=== PATIENT | male | born 1975 | race Caucasian/White ===

== ENCOUNTER 2019-12-16 07:06 | Outpatient (REF) | payer SELFPAY | END 2019-12-16 07:07 | disposition home or self-care (01) | LOC: HO.LAB 07:06 | PROVIDERS: Visit Provider Internal Medicine | DX: Z20.828 Contact with and (suspected) exposure to other viral communicable diseases (principal) | CPT/HCPCS: C9803; U0003 ==

== ENCOUNTER 2020-03-25 13:53 | Outpatient (REF) | payer OTHER, SELFPAY | END 2020-03-25 13:54 | disposition home or self-care (01) | LOC: HO.LAB 13:53 | PROVIDERS: Visit Provider Internal Medicine | DX: Z20.822 Contact with and (suspected) exposure to COVID-19 (principal) | CPT/HCPCS: 36415; C9803; U0003; U0005 ==

== ENCOUNTER 2020-04-14 13:44 | Outpatient (REF) | payer OTHER, SELFPAY | END 2020-04-14 13:45 | disposition home or self-care (01) | LOC: HO.LAB 13:44 | PROVIDERS: Visit Provider Internal Medicine | DX: Z20.822 Contact with and (suspected) exposure to COVID-19 (principal) | CPT/HCPCS: 36415; C9803; U0003; U0005 ==

== ENCOUNTER 2024-10-24 12:35 | Inpatient (IN) | payer OTHER, SELFPAY ==
[2024-10-24] VITALS (7 sets, daily range): BP systolic 153–194; BP diastolic 90–123; PULSE 59–84; RESP 16–20; TEMP 36.4–36.7; O2SAT 94–98; BMI 30.8; BMI 31.0
--- NOTE | ~2024-10-24 | US_ITS ---
CLINICAL HISTORY: ? gallstone pancreatitis Limited ultrasound of the abdomen Comparison: CR/SR - XR ABDOMEN 1 VIEW (KUB) - 10/25/24 09:[address]/NC/SR - CT ABDOMEN PELVIS WITH IV CONTRAST - 10/24/24 15:[address] - CT ABDOMEN PELVIS WITH IV CONTRAST - 10/24/24 15:05 EDT Findings: The liver is enlarged, measuring 18.5cm. Increased echogenicity without focal lesions. Normal flow is visualized within the portal vein. No intrahepatic biliary ductal dilatation. No cholelithiasis. No gallbladder wall thickening or pericholecystic fluid. Sonographic Woody's sign not reported. The common bile duct is normal, measuring 0.4cm. The pancreas is not well seen. The right kidney is normal in echogenicity and size, measuring 12.4cm. No nephrolithiasis or hydronephrosis. Small ascites. Impression: Small ascites. No cholelithiasis or evidence of acute cholecystitis. Hepatomegaly with hepatic steatosis. This document has been electronically signed by: Gertrudis Christie MD on 10/26/2024 15:20:45
--- NOTE | ~2024-10-24 | CT_ITS ---
EXAMINATION: CT ABDOMEN AND PELVIS WITH CONTRAST CLINICAL INFORMATION: Epigastric pain. EtOH. History of pancreatitis. COMPARISON: None available. TECHNIQUE: Multidetector volumetric images were obtained from the superior aspect of the liver through the pubic symphysis following administration 85 mL of Omnipaque 350 intravenous contrast. Sagittal and coronal reformatted images were obtained on the technologist's workstation. Oral contrast: No This CT examination was performed using dose optimization techniques as appropriate, variously including the following: *Automated exposure control *Adjustment of mA and/or kV according to patient size (this includes techniques or standardized protocols for targeted exams where dose is matched to indication/reason for exam; i.e. extremities or head) *Use of iterative reconstruction technique. DLP: 521 mGy centimeter. FINDINGS: LUNG BASES: Patchy groundglass, lung bases. LIVER, GALLBLADDER, AND BILIARY TREE: Liver measures 20 cm. Decreased attenuation. No focal mass. Main portal veins, hepatic veins and intrahepatic portion of the IVC are patent. Gallbladder is contracted. No pericholecystic fluid collection or gallbladder wall thickening. No intrahepatic or extrahepatic biliary ductal dilatation. PANCREAS: Engorged parenchyma with a subcentimeter hypodensity in the uncinate process and body of the pancreas. There is peripancreatic edema pattern extending into the lesser sac without fluid collection. No main pancreatic ductal dilatation.. SPLEEN: 11 cm. No focal mass. ADRENAL GLANDS: No nodular lesions. KIDNEYS AND URETERS: No renal mass. No hydronephrosis. No gross nephrolithiasis. Normal enhancement pattern of the renal parenchyma. No dilatation of the ureters. BLADDER: Fluid-filled nearly collapsed with wall thickening. GASTROINTESTINAL TRACT: Abundant stool. Collapsed appearance of the left hemicolon. Questionable concentric wall edema extending from the splenic colonic flexure to the descending colon. No intestinal obstruction pattern. No pneumatosis intestinalis. Terminal ileum is normal. Appendix is not identified. No pericecal edema pattern. No fluid collections in the peritoneal cavity. No pneumoperitoneum. No ascites. ABDOMINAL WALL: Small fat-containing umbilical hernia. LYMPH NODES: No specific prominent mesenteric and retroperitoneum likely reactive. VASCULAR: The main splenic vein is patent without gross intraluminal filling defect. The main splenic artery is patent without vascular irregularity. No aneurysm or dissection, abdominal aorta. Mixed plaques in the abdominal aorta wall and iliac arteries PELVIC VISCERA: Not enlarged prostate gland. OSSEOUS STRUCTURES: Multilevel thoracolumbar spondylosis. No acute fracture or gross listhesis. Sclerosis and the sacroiliac joints. Probable bony island lesions in the posterior right iliac bone. S-shaped curvature of the thoracolumbar spine which could be positional. CT/CT abdomen pelvis w IV con IMPRESSION: Acute interstitial pancreatitis without splenic vein thrombosis or pseudoaneurysm, splenic artery. Hepatomegaly and steatosis. Likely reactive inflammatory processes in the left hemicolon. Fleischner guidelines were followed. Electronically signed by: Aldair Martinez MD 10/24/2024 04:02 PM EDT
--- NOTE | ~2024-10-24 | XR_ITS ---
EXAMINATION: XR ABDOMEN KUB CLINICAL INDICATION: Constipation COMPARISON: CT abdomen and pelvis dated prior day. TECHNIQUE: AP view of the abdomen. FINDINGS: Bowel gas pattern is normal/nonspecific. There is no focally dilated loop. There is mild gaseous distention of the colon with moderate fecal residue seen in the right hemicolon. Redundant gas-filled sigmoid. Residual contrast noted within the gallbladder and within the urinary bladder. No organomegaly. No large abdominal mass. No abnormal soft tissue calcifications. No focal bony abnormality detected. Imaged lung bases appear clear. XR/XR KUB IMPRESSION: 1. Mild constipation. No evidence of bowel obstruction. Mild gaseous distention of the sigmoid colon which is mildly redundant. Electronically signed by: Ramón Morrison MD 10/25/2024 09:33 AM EDT
--- NOTE | 2024-10-24 12:56 | ECG_ITS ---
Test Reason : CP Blood Pressure : */* mmHG Vent. Rate : 72 BPM Atrial Rate : 72 BPM P-R Int : 150 ms QRS Dur : 94 ms QT Int : 408 ms P-R-T Axes : 51 -7 31 degrees QTcB Int : 446 ms Normal sinus rhythm with sinus arrhythmia Minimal voltage criteria for LVH, may be normal variant ( R in aVL ) Borderline ECG No previous ECGs available Referred By: Dianna Brown Electronically Signed By: SU HERNANDEZ
--- NOTE | 2024-10-24 13:41 | ED.ABDPAIN ---
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 No prior withdrawal seizures. He started with abdominal pain this AM n/v and feels just like prior pancreatitis. He denies bloody stools. He notes the pain moves up his chest. MD elicited complaint: abdominal pain Pertinent past history: other (pancreatitis) Onset (ago): day(s) (today) Pain Consistency: constant Location: epigastric Severity: similar to previous episodes Quality: stabbing Radiation: back Migration to: no migration Exacerbating factors: eating and movement Relieving factors: nothing Context: history of similar episodes Associated symptoms: nausea and vomiting Related Data Allergies Allergy/AdvReac Type Severity Reaction Status Date / Time No Known Allergies Allergy Verified 10/24/24 12:55 Review of Systems Review of Systems Constitutional : No Weight loss, No Fever, No Chills ENT/Mouth : No sore throat, No Rhinorrhea Eyes: No Swelling, No Redness Cardiovascular : No Chest Pain, No SOB, No Edema Respiratory : No Cough, No Sputum, No Wheezing Gastrointestinal : Positive Nausea, Positive Vomiting, no Diarrhea, positive abdominal Pain, No Hematochezia, No Melena Genitourinary : No Dysuria, No Urinary Frequency, No Hematuria, No Urgency Musculoskeletal : No joint pain, No Myalgias, No Joint Swelling Skin : No Skin Lesions, No rash Neuro : No Weakness, No Numbness, No Dizziness, No Headache All other systems reviewed and are negative. [facility] Past Medical History Attestation statement: The following information was validated with the patient. Source: old records reviewed Medical History Hypertension Surgical History Hx of appendectomy Social History Social History Smoked in Last 30 Days: Yes Use of substances other than those prescribed or required for medical reasons: Yes Substance Use Frequency Other:: suboxone bought off street Last Used Substance: Hours (ago) Advance Directives: No Advance Directives Information Provided: Yes Do you have a plan to hurt others: No Plan Physical Exam ED Vital Signs: Vital Signs - 24 hr 10/24/24 12:51 10/24/24 14:59 Temperature 97.5 F 97.9 F Pulse Rate 59 63 Respiratory Rate 18 16 Blood Pressure 153/100 H 172/110 H Pulse Oximetry 97 98 Oxygen Delivery Method Room Air Room Air BMI result Body Mass Index 30.8 Appearance: Alert. Oriented X3. in pain mild acute distress. anxious Eyes: Pupils equal, round and reactive to light. ENT: Pharynx dry MM, tongue fasciculations Neck: Normal inspection. Neck supple. CVS: Normal heart rate and rhythm. Pulses normal. Respiratory: No respiratory distress. Breath sounds normal. Abdomen: Soft and with moderate ttp no rebound Skin: Skin warm and dry. Normal skin color. Extremities: No lower extremity edema. Neuro: Oriented X 3. No motor deficit. No sensory deficit. CN2-12 intact slight tremors of both UE Medical Decision Making Medical Decision Making [facility] Narrative: 49 yo male with PMH of ETOH abuse, prior pancreatitis remotely now here with tremors, n/v, abdominal pain will obtain labs, CT scan of abdomen start on thiamine, phenobarb protocol for withdrawal, IV dilaudid for pain. Suspect gastritis, biliary colic, ETOH abuse, pancreatitis Differential Diagnosis Differential Diagnoses: The differential diagnosis associated with the presentation includes pancreatitis, ETOH use disorder, ETOh gastritis Admission/Observation Consideration of admission/observation: Escalation of care including admission/observation considered admit for IV pain control Consult Healthcare Provider Management of the patient was discussed with: Hospitalist (will admit) Lab Data [facility] Lab Attestation statement: I reviewed the patient's lab results. 10/24/24 13:44 10/24/24 13:44 Labs: Lab Results 10/24/24 10/24/24 Range/Units 13:44 15:12 WBC 12.5 H (4.8-10.8) X10*3/uL RBC 4.99 (4.60-5.80) X10*6/uL Hgb 15.1 (14.0-18.0) g/dl Hct 42.6 (42.0-52.0) % MCV 85.4 (80.0-98.0) fL MCH 30.3 (27.0-33.0) pg MCHC 35.4 (31.0-36.0) g/dl RDW 12.8 (11.0-16.0) % Plt Count 251 (160-400) X10*3/uL MPV 9.4 (9.4-12.4) fL Immature Gran % (Auto) 0.6 H (0.0-0.4) % Neut % (Auto) 82.7 H (45-73) % Lymph % (Auto) 6.3 L (20-40) % [place] % (Auto) 10.2 (2-11) % Eos % (Auto) 0.0 (0-4) % Baso % (Auto) 0.2 (0-2) % Lymph # (Auto) 0.8 L (1.2-4.9) X10*3/uL [place] # (Auto) 1.3 H (0.1-1.2) X10*3/uL Eos # (Auto) 0.0 (0.0-0.4) X10*3/uL Baso # (Auto) 0.0 (0.0-0.2) X10*3/uL Abs Immat Gran (auto) 0.08 H (0.00-0.03) X10*3/uL Absolute Neuts (auto) 10.3 H (2.0-8.3) x10*3/uL Absolute Nucleated RBC 0.000 (0.0-0.012) X10*3/uL Nucleated RBC % (auto) 0.0 (0.0-0.2) /100WBC Sodium 141 (135-145) mmol/L Potassium 4.0 (3.3-5.1) mmol/L Chloride 107 (96-108) mmol/L Carbon Dioxide 27 (22-29) mmol/L Anion Gap 11 L (12-20) BUN 11 (9-16) mg/dL Creatinine 0.76 (0.5-1.4) mg/dL Estim Creat Clear Calc 123.9 Estimated GFR > 60 Random Glucose 143 H (60-115) mg/dL Calcium 9.5 (8.4-10.2) mg/dL Magnesium 2.1 (1.6-2.6) mg/dL Total Bilirubin 0.5 (0.0-1.0) mg/dL Direct Bilirubin 0.2 (0.0-0.5) mg/dL AST 79 H (5-37) U/L ALT 115 H (0-40) U/L Alkaline Phosphatase 65 (39-117) U/L Lactate Dehydrogenase 221 (118-273) U/L Troponin I High Sens < 2.7 (<3.5-35.0) ng/L Total Protein 7.8 (6.5-8.0) g/dL Albumin 4.9 (3.5-5.0) g/dL Lipase 923 H (8-78) U/L Urine Opiates Screen Not Detected (Not Detect) Ur Buprenorphine Scrn Positive H (Not Detect) ng/mL Ur Oxycodone Screen Not Detected (Not Detect) ng/mL Urine Methadone Screen Not Detected (Not Detect) ng/mL Urine Fentanyl Screen Not Detected (Not Detect) Ur Barbiturates Screen Not Detected (Not Detect) Ur Phencyclidine Scrn Not Detected (Not Detect) Ur Amphetamines Screen Not Detected (Not Detect) U Benzodiazepines Scrn Not Detected (Not Detect) Urine Cocaine Screen Not Detected (Not Detect) U Marijuana (THC) Screen Not Detected (Not Detect) Ethyl Alcohol < 10 mg/dL Independent Interpretation I performed an independent interpretation of an: EKG and CT Scan (pancreatitis) Interpretation: Rate: 72 Rhythm: NSR [place]: left Normal P waves. Normal ELEAZAR. Normal QRS complex. ST T wave : normal no GUNJAN qTC: 446 prior studies: no acute ischemia The study has been interpreted contemporaneously by me. . Radiology Impression Discussion of test interpretation with radiology: I have reviewed the radiologist's reading. External Record Review External record reviewed: Outpatient record Medications Administered Discontinued Medications Generic Name Dose Route Start Last Admin Trade Name Freq PRN Reason Stop Dose Admin Hydromorphone HCl 1 mg 10/24/24 13:05 10/24/24 13:49 Hydromorphone Hcl 1 Mg/Ml Syringe IVPUSH 10/24/24 13:06 1 mg ONCE ONE Administration Protocol Lactated Ringer's 1,000 mls @ 999 mls/hr 10/24/24 13:05 10/24/24 14:50 Lr IV 10/24/24 14:05 Infused .Q1H1M ONE Infusion Thiamine HCl 200 mg/ Sodium 102 mls @ 204 mls/hr 10/24/24 13:05 10/24/24 14:22 Chloride IV 10/24/24 13:34 Infused ONCE ONE Infusion Iohexol 100 ml 10/24/24 15:39 10/24/24 15:39 Iohexol 350 Mg/Ml 100 Ml Infus..Btl IV 10/24/24 15:40 85 ml ONCE ONE Administration Ondansetron HCl 4 mg 10/24/24 13:05 10/24/24 13:49 Ondansetron Hcl 4 Mg/2 Ml Vial IVPUSH 10/24/24 13:06 4 mg ONCE ONE Administration Phenobarbital Sodium 264 mg 10/24/24 14:00 10/24/24 14:15 Phenobarbital Sodium 130 Mg/Ml Im Once IM 10/24/24 14:01 264 mg ONCE ONE Administration Critical Care Time Critical Care Time Critical Care Time: Yes Total Critical Care Time: 45 Attestation: Time is exclusive of separately billable procedures. Time includes: direct patient care, patient reassessment, coordination of patient care, interpretation of data (laboratory data, pulse oximetry, CT scans), review of patient's medical records, medical consultation and documentation of patient care. Repeat IV pain control with IV dilaudid, phenobarb protocol for withdrawal Procedures excluded from critical care time: electrocardiography. I attest to this time spent taking care of the patient Discharge Plan Discharge Clinical Impression: Abdominal pain Qualifiers: Abdominal location: epigastric Qualified Code(s): R10.13 - Epigastric pain Pancreatitis Qualifiers: Chronicity: acute Pancreatitis type: alcohol induced Acute pancreatitis complication: no infection or necrosis Qualified Code(s): K85.20 - Alcohol induced acute pancreatitis without necrosis or infection Patient Disposition: Admitted As Inpatient Print Language: Serbian
[2024-10-24 13:47] LABS: MANUAL DIFF FLAG NO
[2024-10-24] MEDS: Lactated Ringers 1,000 ML 999 ML IV (13:49)
[2024-10-24 13:52] LABS: Hematocrit 42.6 % (42.0-52.0); Hemoglobin 15.1 g/dl (14.0-18.0); Imm Gran Abs Auto 0.08 X10*3/uL (0.00-0.03); Imm Gran Pct Auto 0.6 % (0.0-0.4); Lymphocytes Absolute Auto 0.8 X10*3/uL (1.2-4.9); Mean Corpuscular HGB Conc 35.4 g/dl (31.0-36.0); Mean Corpuscular Hemoglobin 30.3 pg (27.0-33.0); Mean Corpuscular Volume 85.4 fL (80.0-98.0); NRBC Abs Auto 0.000 X10*3/uL (0.0-0.012); NRBC Pct Auto 0.0 /100WBC (0.0-0.2); Platelet Count 251 X10*3/uL (160-400); Red Blood Count 4.99 X10*6/uL (4.60-5.80); White Blood Count 12.5 X10*3/uL (4.8-10.8)
[2024-10-24] MEDS: Thiamine HCL 200 MG in 0.9 % Sodium Chloride 100 ML 204 MG IV (13:52)
--- NOTE | 2024-10-24 14:00 | PC.NURSE ---
patient a&ox3, iv inserted, labs drawn, ekg performed, monitoring coordinator applied- nsr, ivf started per order, pt medicated for 10/10 abd pain, awaiting radiology, call hagan within reach, plan of care ongoing
[2024-10-24] MEDS: PHENobarbitaL sodium 130 MG/ML IM ONCE 264 MG IM (14:15)
--- NOTE | 2024-10-24 14:18 | PC.NURSE ---
pt medicated with phenobarb per order
[2024-10-24 14:21] LABS: Troponin-I High Sensitivity < 2.7 ng/L (<3.5-35.0)
[2024-10-24 14:29] LABS: Alanine Aminotransferase 115 U/L (0-40); Albumin Level 4.9 g/dL (3.5-5.0); Alkaline Phosphatase 65 U/L (39-117); Anion Gap 11 (12-20); Aspartate Amino Transferase 79 U/L (5-37); Blood Urea Nitrogen 11 mg/dL (9-16); Calcium 9.5 mg/dL (8.4-10.2); Carbon Dioxide 27 mmol/L (22-29); Chloride 107 mmol/L (96-108); Creatinine Clr Calc Pharmacy 123.9; Estimated Glomerular Filt Rate > 60; Magnesium 2.1 mg/dL (1.6-2.6); Potassium 4.0 mmol/L (3.3-5.1); Sodium 141 mmol/L (135-145); Total Protein 7.8 g/dL (6.5-8.0)
[2024-10-24 14:33] LABS: Lipase 923 U/L (8-78)
[2024-10-24] MEDS: iohexoL 350 MG/ML 100 ML INFUS..BTL IV (15:39)
[2024-10-24 15:56] LABS: Cannabinoid Screen Urine Not Detected (Not Detect)
[2024-10-24] MEDS: Lactated Ringers 1,000 ML 100 ML IVCONT (16:33)
--- NOTE | 2024-10-24 16:42 | PC.NURSE ---
ivf hung per order, pt medicated for 10/10 abd pain- provider wanted 1st dose of dilaudid given and will reassess and speak with provider about the second dose.
--- NOTE | 2024-10-24 17:03 | PM.IMHP ---
History of Present Illness Date of Service: 10/24/24 Attending physician on admission: Maribell Garcia Chief Complaint: alcohol withdrawals HPI: 58 y/o M with pmhx etoh use -patient has prior history of pancreatitis also due to alcohol use-he drinks about 4 tall beers a day and feels shaky if he doesn't. No prior withdrawal seizures. He started with abdominal pain this AM n/v and feels just like prior pancreatitis. abd pain: Left flank side, radiating to back, unable to eat or drink due to pain. Feel nauseated. Denies any fever or chills. In addition patient is tremulous, anxious Lab imaging reviewed: WBC: 12.5 BMP: Seems fine except has mild elevated LFTs. ct abd: Acute interstitial pancreatitis without splenic vein thrombosis or pseudoaneurysm, splenic artery. Hepatomegaly and steatosis.Likely reactive inflammatory processes in the left hemicolon. Fleischner guidelines were followed. Review of Systems Review of Systems: As above. Yes all other systems are reviewed and are negative [facility] Medical History Hypertension Surgical History Hx of appendectomy Social History Smoked in Last 30 Days: Yes Use of substances other than those prescribed or required for medical reasons: Yes Substance Use Frequency Other:: suboxone bought off street Last Used Substance: Hours (ago) Advance Directives: No Advance Directives Information Provided: Yes Do you have a plan to hurt others: No Plan Meds Allergies Allergy/AdvReac Type Severity Reaction Status Date / Time No Known Allergies Allergy Verified 10/24/24 12:55 Active Medications: Current Medications Acetaminophen (Acetaminophen 325 Mg Tablet) 650 mg PO Q6H PRN PRN Reason: Pain, Mild 1-3,fever,headache Calcium Carbonate (Calcium Carbonate 750 Mg Tab.Chew) 750 mg PO Q4H PRN PRN Reason: Heartburn Clonidine HCl (Clonidine Hcl 0.1 Mg Tablet) 0.1 mg PO Q8H GREG; Protocol Enoxaparin Sodium (Enoxaparin Sodium 40 Mg/0.4 Ml Syringe) 40 mg SUBCUT Q24H GREG Hydromorphone HCl (Hydromorphone Hcl 0.5 Mg/0.5 Ml Syringe) 0.1 mg IVPUSH Q4H [facility]; Protocol Lactated Ringer's (Lr) 1,000 mls @ 100 mls/hr IVCONT .Q10H [facility] Last Admin: 10/24/24 16:33 Dose: 100 mls/hr Lactated Ringer's (Lr) 1,000 mls @ 100 mls/hr IVCONT .Q10H [facility] Magnesium Hydroxide (Milk Of Magnesia 30 Ml Oral.Susp) 30 ml PO DAILY PRN PRN Reason: Constipation Melatonin (Melatonin 3 Mg Tablet) 6 mg PO BEDTIME PRN PRN Reason: Insomnia Pantoprazole Sodium (Pantoprazole Sodium 40 Mg/10 Ml Vial) 40 mg IVPUSH BID [facility] Pharmacy Consult (Consult Rx Etoh Phenob Im/Po) 1 each MISCELLANE ONCE PRN; Protocol PRN Reason: Consult order Phenobarbital (Phenobarbital 15 Mg Tablet) 45 mg PO BID [facility] Stop: 10/26/24 21:01 Phenobarbital (Phenobarbital 15 Mg Tablet) 15 mg PO BID [facility] Stop: 10/28/24 21:01 Phenobarbital (Phenobarbital 15 Mg Tablet) 15 mg PO DAILY [facility] Stop: 10/30/24 09:01 Phenobarbital Sodium (Phenobarbital Sodium 130 Mg/Ml Vial Im Q3hx2) 198 mg IM Q3H [facility] Stop: 10/24/24 20:01 Sodium Chloride (0.9 % Sodium Chloride Flush 3 Ml Syringe) 3 ml IVFLUSH QSHIFT [facility] Physical Exam Vital Signs and Narrative: Vital Signs: Last Vital Signs Temp 98.0 F 10/24/24 16:38 Pulse 82 10/24/24 16:38 Resp 16 10/24/24 16:38 BP 188/123 H 10/24/24 16:38 Pulse Ox 94 10/24/24 16:38 O2 Del Method Room Air 10/24/24 16:38 BMI result Body Mass Index 30.8 Appearance: Alert.? Oriented X3.? cvs: rrr, [id number] , no murmur res: clear to auscultation ,no rhonchii or wheezing abd: no rebound or guarding ,left flank/epigastric pain , bs present. ext pulses present , no cyanosis . neuro: axo3 , nonfocal. Results Labs 10/24/24 13:44 10/24/24 13:44 Labs: Laboratory Results - last 24 hr 10/24/24 10/24/24 13:44 15:12 MCV 85.4 MCH 30.3 MCHC 35.4 RDW 12.8 Plt Count 251 MPV 9.4 Immature Gran % (Auto) 0.6 H Neut % (Auto) 82.7 H Lymph % (Auto) 6.3 L [place] % (Auto) 10.2 Eos % (Auto) 0.0 Baso % (Auto) 0.2 Lymph # (Auto) 0.8 L [place] # (Auto) 1.3 H Eos # (Auto) 0.0 Baso # (Auto) 0.0 Abs Immat Gran (auto) 0.08 H Absolute Neuts (auto) 10.3 H Absolute Nucleated RBC 0.000 Nucleated RBC % (auto) 0.0 Anion Gap 11 L Estim Creat Clear Calc 123.9 Estimated GFR > 60 Random Glucose 143 H Calcium 9.5 Magnesium 2.1 Total Bilirubin 0.5 Direct Bilirubin 0.2 AST 79 H ALT 115 H Alkaline Phosphatase 65 Lactate Dehydrogenase 221 Troponin I High Sens < 2.7 Total Protein 7.8 Albumin 4.9 Lipase 923 H Urine Opiates Screen Not Detected Ur Buprenorphine Scrn Positive H Ur Oxycodone Screen Not Detected Urine Methadone Screen Not Detected Urine Fentanyl Screen Not Detected Ur Barbiturates Screen Not Detected Ur Phencyclidine Scrn Not Detected Ur Amphetamines Screen Not Detected U Benzodiazepines Scrn Not Detected Urine Cocaine Screen Not Detected U Marijuana (THC) Screen Not Detected Ethyl Alcohol < 10 Imaging Radiologist's Impressions: Impressions Abdomen/Pelvis CT 10/24/24 15:18 IMPRESSION: Acute interstitial pancreatitis without splenic vein thrombosis or pseudoaneurysm, splenic artery. Hepatomegaly and steatosis. Likely reactive inflammatory processes in the left hemicolon. Fleischner guidelines were followed. Electronically signed by: Aldair Martinez MD 10/24/2024 04:02 PM EDT Assessment and Plan (1) Pancreatitis: Qualifiers: Acute pancreatitis complication: no infection or necrosis Chronicity: acute Pancreatitis type: alcohol induced Qualified Code(s): K85.20 - Alcohol induced acute pancreatitis without necrosis or infection Status: Acute Plan 58 y/o M with pmhx etoh use -patient has prior history of pancreatitis also due to alcohol use-he drinks about 4 tall beers a day and feels shaky if he doesn't. No prior withdrawal seizures. He started with abdominal pain this AM n/v and feels just like prior pancreatitis. abd pain: Left flank side, radiating to back, unable to eat or drink due to pain. Feel nauseated. 1. Acute pancreatitis-likely secondary to alcohol use. Elevated LFT, lipase, CT abdomen shows pancreatitis plan: Bowel rest, IV fluids, IV pain medication, IV antiemetics 2. Alcohol withdrawal: CIWA scale, thiamine, folic acid, phenobarb protocol. Addiction evaluation dvt prophylax: s/c lovenox Patient will benefit from 2 midnight stays considering alcohol withdrawals ,acute pancreatitis-need bowel rest,iv fluids ,pain meds and antiemetics, as well as closely monitor renal function electrolytes. Quality Stroke Does the patient have a stroke diagnosis?: No VTE Prior VTE?: No VTE Risk Level:: Medical - moderate - high VTE Device Contraindication: N/A - Device Ordered VTE Drug Contraindication: N/A - Med Ordered
[2024-10-24] MEDS: PHENobarbitaL sodium 130 MG/ML VIAL IM Q3Hx2 198 MG IM (18:00)
--- NOTE | 2024-10-24 18:02 | PC.NURSE ---
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
[2024-10-24] MEDS: 0.9 % Sodium Chloride Flush 3 ML SYRINGE IVFLUSH (21:28)
--- NOTE | 2024-10-24 21:56 | PC.NURSE ---
Patient admitted with Licensed Tax Consultant used at bedside by this charge entry. Patient hypertensive on admit as confirmed with manual by this life insurance underwriter. This pt denies s/s of HTN including h/a, dizziness, vision changes, n/v. Covering Dr. Leonard Sharma and the primary RN caring for this patient were notified. Pt denied any known medication allergies with asl interpreter. Please see provider notification and MAR for interventions. Bed alarm on and call hagan within reach and patient educated on use and fall measures.
--- NOTE | 2024-10-24 22:22 | HE.PHANOTE ---
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 Per family, patient doesn't take anything except for an old prescription of a blood pressure medication that he only takes as needed when blood pressure is high but either can recall the name of the medication. Patient doesn't see any doctor due to lack of insurance. Family will go home and take picture of the prescription vial and let us know.
[2024-10-25] VITALS (9 sets, daily range): BP systolic 124–190; BP diastolic 80–101; PULSE 66–86; RESP 16–18; TEMP 36.3–37.1; O2SAT 91–95
[2024-10-25] MEDS: Lactated Ringers 1,000 ML 100 ML IVCONT ×3 (02:40→22:12)
[2024-10-25 07:20] LABS: Hematocrit 47.3 % (42.0-52.0); Hemoglobin 16.0 g/dl (14.0-18.0); Mean Corpuscular HGB Conc 33.8 g/dl (31.0-36.0); Mean Corpuscular Hemoglobin 29.9 pg (27.0-33.0); Mean Corpuscular Volume 88.4 fL (80.0-98.0); NRBC Abs Auto 0.000 X10*3/uL (0.0-0.012); NRBC Pct Auto 0.0 /100WBC (0.0-0.2); Platelet Count 256 X10*3/uL (160-400); Red Blood Count 5.35 X10*6/uL (4.60-5.80); White Blood Count 13.8 X10*3/uL (4.8-10.8)
[2024-10-25 07:39] LABS: Alanine Aminotransferase 90 U/L (0-40); Albumin Level 4.5 g/dL (3.5-5.0); Alkaline Phosphatase 62 U/L (39-117); Anion Gap 12 (12-20); Aspartate Amino Transferase 60 U/L (5-37); Blood Urea Nitrogen 11 mg/dL (9-16); Calcium 9.2 mg/dL (8.4-10.2); Carbon Dioxide 30 mmol/L (22-29); Chloride 98 mmol/L (96-108); Creatinine Clr Calc Pharmacy 119.6; Estimated Glomerular Filt Rate > 60; Potassium 4.2 mmol/L (3.3-5.1); Sodium 136 mmol/L (135-145); Total Protein 7.4 g/dL (6.5-8.0)
[2024-10-25 07:51] LABS: Lipase 1398 U/L (8-78)
[2024-10-25] MEDS: 0.9 % Sodium Chloride Flush 3 ML SYRINGE IVFLUSH ×2 (08:10→14:42)
--- NOTE | 2024-10-25 08:25 | HO.PM.IMPN ---
Subjective Subjective Date of Service: 10/25/24 Interval History: alcohol withdrawals Review of Systems Abdominal pain similar, no improvement as per the patient Does not have nausea today Unable to tolerate diet Review of Systems: Yes all other systems are reviewed and are negative Physical Exam Exam: Exam: Appearance: Alert.? Oriented X3.? cvs: [id number], [id number] . res: clear to auscultation ,no rhonchii or wheezing abd: no rebound or guarding ,abd pain -similar , bs present. ext pulses present , no cyanosis . neuro: axo3 , nonfocal. Vital Signs: Vital Signs: Last Vital Signs Temp 97.4 F 10/25/24 08:00 Pulse 66 10/25/24 08:00 Resp 18 10/25/24 08:00 BP 155/101 H 10/25/24 08:00 Pulse Ox 95 10/25/24 08:00 O2 Del Method Room Air 10/25/24 08:00 BMI result Body Mass Index 31.0 Objective Data Active Medications Acetaminophen (Acetaminophen 325 Mg Tablet) 650 mg PO Q6H PRN PRN Reason: Pain, Mild 1-3,fever,headache Amlodipine Besylate (Amlodipine Besylate 2.5 Mg Tablet) 7.5 mg PO BEDTIME [facility]; Protocol Last Admin: 10/24/24 21:27 Dose: 7.5 mg Documented By: AYO Calcium Carbonate (Calcium Carbonate 750 Mg Tab.Chew) 750 mg PO Q4H PRN PRN Reason: Heartburn Clonidine HCl (Clonidine Hcl 0.2 Mg Tablet) 0.2 mg PO Q8H [facility]; Protocol Last Admin: 10/25/24 06:37 Dose: 0.2 mg Documented By: PA Enoxaparin Sodium (Enoxaparin Sodium 40 Mg/0.4 Ml Syringe) 40 mg SUBCUT Q24H [facility] Last Admin: 10/24/24 18:01 Dose: 40 mg Documented By: ROSA ISELA Hydromorphone HCl (Hydromorphone Hcl 1 Mg/Ml Syringe) 1 mg IVPUSH Q4H [facility]; Protocol Last Admin: 10/25/24 06:37 Dose: 1 mg Documented By: PA Lactated Ringer's (Lr) 1,000 mls @ 100 mls/hr IVCONT .Q10H [facility] Last Admin: 10/25/24 02:40 Dose: 100 mls/hr Documented By: PA Thiamine HCl 100 mg/ Sodium (Chloride) 101 mls @ 202 mls/hr IV DAILY [facility] Folic Acid 1 mg/ Sodium (Chloride) 50.2 mls @ 100.4 mls/hr IV DAILY [facility] Magnesium Hydroxide (Milk Of Magnesia 30 Ml Oral.Susp) 30 ml PO DAILY PRN PRN Reason: Constipation Melatonin (Melatonin 3 Mg Tablet) 6 mg PO BEDTIME PRN PRN Reason: Insomnia Ondansetron HCl (Ondansetron Hcl 4 Mg/2 Ml Vial) 4 mg IVPUSH Q4H PRN PRN Reason: Nausea and Vomiting Pantoprazole Sodium (Pantoprazole Sodium 40 Mg/10 Ml Vial) 40 mg IVPUSH BID [facility] Last Admin: 10/25/24 08:09 Dose: 40 mg Documented By: HILDA Pharmacy Consult (Consult Rx Etoh Phenob Im/Po) 1 each MISCELLANE ONCE PRN; Protocol PRN Reason: Consult order Phenobarbital (Phenobarbital 15 Mg Tablet) 45 mg PO BID [facility] Stop: 10/26/24 21:01 Phenobarbital (Phenobarbital 15 Mg Tablet) 15 mg PO BID [facility] Stop: 10/28/24 21:01 Phenobarbital (Phenobarbital 15 Mg Tablet) 15 mg PO DAILY [facility] Stop: 10/30/24 09:01 Sodium Chloride (0.9 % Sodium Chloride Flush 3 Ml Syringe) 3 ml IVFLUSH QSHIFT [facility] Last Admin: 10/25/24 08:10 Dose: 3 ml Documented By: HILDA Labs 10/25/24 06:45 10/25/24 06:45 Labs: Laboratory Results - last 24 hr 10/24/24 10/24/24 10/25/24 13:44 15:12 06:45 MCV 85.4 88.4 MCH 30.3 29.9 MCHC 35.4 33.8 RDW 12.8 13.0 Plt Count 251 256 MPV 9.4 9.9 Immature Gran % (Auto) 0.6 H Neut % (Auto) 82.7 H Lymph % (Auto) 6.3 L Cowley % (Auto) 10.2 Eos % (Auto) 0.0 Baso % (Auto) 0.2 Lymph # (Auto) 0.8 L Cowley # (Auto) 1.3 H Eos # (Auto) 0.0 Baso # (Auto) 0.0 Abs Immat Gran (auto) 0.08 H Absolute Neuts (auto) 10.3 H Absolute Nucleated RBC 0.000 0.000 Nucleated RBC % (auto) 0.0 0.0 Anion Gap 11 L 12 Estim Creat Clear Calc 123.9 119.6 Estimated GFR > 60 > 60 Random Glucose 143 H 137 H Calcium 9.5 9.2 Magnesium 2.1 Total Bilirubin 0.5 1.3 H Direct Bilirubin 0.2 AST 79 H 60 H ALT 115 H 90 H Alkaline Phosphatase 65 62 Lactate Dehydrogenase 221 Troponin I High Sens < 2.7 Total Protein 7.8 7.4 Albumin 4.9 4.5 Lipase 923 H 1398 H Urine Opiates Screen Not Detected Ur Buprenorphine Scrn Positive H Ur Oxycodone Screen Not Detected Urine Methadone Screen Not Detected Urine Fentanyl Screen Not Detected Ur Barbiturates Screen Not Detected Ur Phencyclidine Scrn Not Detected Ur Amphetamines Screen Not Detected U Benzodiazepines Scrn Not Detected Urine Cocaine Screen Not Detected U Marijuana (THC) Screen Not Detected Ethyl Alcohol < 10 Assessment and Plan (1) Pancreatitis: Status: Acute Plan 58 y/o M with pmhx etoh use -patient has prior history of pancreatitis also due to alcohol use-he drinks about 4 tall beers a day and feels shaky if he doesn't. No prior withdrawal seizures. He started with abdominal pain this AM n/v and feels just like prior pancreatitis. abd pain: Left flank side, radiating to back, unable to eat or drink due to pain. Feel nauseated. 1. Acute pancreatitis-likely secondary to alcohol use. Elevated LFT, lipase, CT abdomen shows pancreatitis plan: Abdominal pain similar, lipase trending up, KUB shows possible constipation. Bowel rest, IV fluids, IV pain medication, IV antiemetics, added bowel regimen. GI evaluation. 2. Alcohol withdrawal: CIWA scale, thiamine, folic acid, phenobarb protocol. Addiction evaluation 3. elevated bp:d/t alcohol withdrawals- on clonidine dvt prophylax: s/c lovenox Patient will benefit from 2 midnight stays considering alcohol withdrawals ,acute pancreatitis-need bowel rest,iv fluids ,pain meds and antiemetics, as well as closely monitor renal function electrolytes. Quality Stroke Does the patient have a stroke diagnosis?: No VTE Prior VTE?: No VTE Risk Level:: Medical - moderate - high VTE Device Contraindication: N/A - Device Ordered VTE Drug Contraindication: N/A - Med Ordered
[2024-10-25] MEDS: Thiamine HCL 100 MG in 0.9 % Sodium Chloride 100 ML 202 MG IV (08:30)
--- NOTE | 2024-10-25 09:23 | PM.GICN ---
History of Present Illness Data of Consult Service Date: 10/25/24 Requesting physician: Maribell Garcia Primary Care Provider: Unknown Physician HPI Reason for consult: acute pancreatitis 49 [place]ian-speaking male with etoh use, history of ETOH related pancreatitis seen at [facility] on 10/24/24 with abdominal pain, nausea and vomiting for 1 day (symptoms similar to past episode of pancreatitis). Patient admits to drinking 4 tall beers a day and feels shaky if he doesn't. No prior withdrawal seizures. Pt describes the abd pain as constant and stabbing located in the epigastrium/ left flank side, radiating to back, unable to eat or drink due to pain. Feel nauseated. Patient reports pain is worse with eating and movement. Denies any fever or chills. In addition patient is tremulous, anxious Labs showed WBC: 12.5 and lipase 923 and increased to 1398 today BMP: Elevated LFTs. 10/24/[address] SCAN SHOWED: Acute interstitial pancreatitis without splenic vein thrombosis or pseudoaneurysm, splenic artery. Hepatomegaly and steatosis. Likely reactive inflammatory processes in the left hemicolon Review of Systems Review of Systems: As above. Yes all other systems are reviewed and are negative [facility] Past Medical History Medical History Hypertension Surgical History Surgical History Hx of appendectomy Social History Social History Household Members: Other Household Members Other:: Friend Housing: Apartment Do you presently have visiting nurse or other home services: No Patient Tobacco Use Status: Current everyday Tobacco user Tobacco use type: Cigarette Cigarettes Per Day: 2 e-Cigarette/Vaping Use: Never Used Meds Allergies Allergy/AdvReac Type Severity Reaction Status Date / Time No Known Allergies Allergy Verified 10/24/24 12:55 Active Medications: Current Medications Acetaminophen (Acetaminophen 325 Mg Tablet) 650 mg PO Q6H PRN PRN Reason: Pain, Mild 1-3,fever,headache Amlodipine Besylate (Amlodipine Besylate 2.5 Mg Tablet) 7.5 mg PO BEDTIME [facility]; Protocol Last Admin: 10/24/24 21:27 Dose: 7.5 mg Calcium Carbonate (Calcium Carbonate 750 Mg Tab.Chew) 750 mg PO Q4H PRN PRN Reason: Heartburn Clonidine HCl (Clonidine Hcl 0.2 Mg Tablet) 0.2 mg PO Q8H [facility]; Protocol Last Admin: 10/25/24 06:37 Dose: 0.2 mg Enoxaparin Sodium (Enoxaparin Sodium 40 Mg/0.4 Ml Syringe) 40 mg SUBCUT Q24H [facility] Last Admin: 10/24/24 18:01 Dose: 40 mg Hydromorphone HCl (Hydromorphone Hcl 1 Mg/Ml Syringe) 1 mg IVPUSH Q4H [facility]; Protocol Last Admin: 10/25/24 06:37 Dose: 1 mg Lactated Ringer's (Lr) 1,000 mls @ 100 mls/hr IVCONT .Q10H [facility] Last Admin: 10/25/24 02:40 Dose: 100 mls/hr Thiamine HCl 100 mg/ Sodium (Chloride) 101 mls @ 202 mls/hr IV DAILY [facility] Last Admin: 10/25/24 08:30 Dose: 202 mls/hr Folic Acid 1 mg/ Sodium (Chloride) 50.2 mls @ 100.4 mls/hr IV DAILY [facility] Magnesium Hydroxide (Milk Of Magnesia 30 Ml Oral.Susp) 30 ml PO DAILY PRN PRN Reason: Constipation Melatonin (Melatonin 3 Mg Tablet) 6 mg PO BEDTIME PRN PRN Reason: Insomnia Ondansetron HCl (Ondansetron Hcl 4 Mg/2 Ml Vial) 4 mg IVPUSH Q4H PRN PRN Reason: Nausea and Vomiting Pantoprazole Sodium (Pantoprazole Sodium 40 Mg/10 Ml Vial) 40 mg IVPUSH BID [facility] Last Admin: 10/25/24 08:09 Dose: 40 mg Pharmacy Consult (Consult Rx Etoh Phenob Im/Po) 1 each MISCELLANE ONCE PRN; Protocol PRN Reason: Consult order Phenobarbital (Phenobarbital 15 Mg Tablet) 45 mg PO BID [facility] Stop: 10/26/24 21:01 Last Admin: 10/25/24 08:26 Dose: 45 mg Phenobarbital (Phenobarbital 15 Mg Tablet) 15 mg PO BID [facility] Stop: 10/28/24 21:01 Phenobarbital (Phenobarbital 15 Mg Tablet) 15 mg PO DAILY [facility] Stop: 10/30/24 09:01 Sodium Chloride (0.9 % Sodium Chloride Flush 3 Ml Syringe) 3 ml IVFLUSH QSHIFT [facility] Last Admin: 10/25/24 08:10 Dose: 3 ml Physical Exam Vital Signs: Vital Signs: Last Vital Signs Temp 97.4 F 10/25/24 08:00 Pulse 80 10/25/24 08:31 Resp 18 10/25/24 08:00 BP 132/80 10/25/24 08:31 Pulse Ox 94 10/25/24 08:31 O2 Del Method Room Air 10/25/24 08:00 BMI result Body Mass Index 31.0 Const: General: cooperative, in distress (due to pain) and anxious Nutritional Appearance: obese Orientation/consciousness: patient oriented x3 Limitations: language barrier HEENT: Head: Yes normal to inspection Ears: hearing grossly normal bilaterally Eyes: Sclerae: sclerae normal Pupils: Equal, round and reactive pupils present Neck: Neck: Yes normal visual inspection Chest: Chest palpation & inspection: normal inspection of the chest Resp: Effort & Inspection: normal respiratory effort Auscultation: clear to auscultation bilaterally Cardio: Palpation: normal PMI Rate: regular rate Rhythm: regular rhythm Heart sounds: S1 normal heart sound present, S2 normal heart sound present and no murmurs GI: Palpation (GI): Soft to palpation, Tenderness to palpation present (GI) (Moderate generalized abdominal tenderness without rebound) and No hepatosplenomegaly present Auscultation: normal bowel sounds Rectal Exam - Male: Yes deferred Skin: General skin exam: no rashes or lesions noted Neuro: General: patient oriented x3, gait normal and moves all extremities Cranial nerves: Yes Equal, round and reactive pupils present Psych: Appearance: grossly normal Mental Status: mental status grossly normal Results Labs 10/25/24 06:45 10/25/24 06:45 Labs: Short CBC 10/24/24 10/25/24 Range/Units 13:44 06:45 WBC 12.5 H 13.8 H (4.8-10.8) X10*3/uL Hgb 15.1 16.0 (14.0-18.0) g/dl Hct 42.6 47.3 (42.0-52.0) % Plt Count 251 256 (160-400) X10*3/uL BMP 10/24/24 10/25/24 13:44 06:45 Sodium 141 136 Potassium 4.0 4.2 Chloride 107 98 Carbon Dioxide 27 30 H BUN 11 11 Creatinine 0.76 0.79 Calcium 9.5 9.2 Liver Function 10/24/24 10/25/24 Range/Units 13:44 06:45 Total Bilirubin 0.5 1.3 H (0.0-1.0) mg/dL Direct Bilirubin 0.2 (0.0-0.5) mg/dL AST 79 H 60 H (5-37) U/L ALT 115 H 90 H (0-40) U/L Alkaline Phosphatase 65 62 (39-117) U/L Albumin 4.9 4.5 (3.5-5.0) g/dL Assessment and Plan (1) Abdominal pain: Qualifiers: Abdominal location: epigastric Qualified Code(s): R10.13 - Epigastric pain Status: Acute (2) Pancreatitis: Qualifiers: Acute pancreatitis complication: no infection or necrosis Chronicity: acute Pancreatitis type: alcohol induced Qualified Code(s): K85.20 - Alcohol induced acute pancreatitis without necrosis or infection Status: Acute Plan 49 [place]-speaking male with etoh use, history of ETOH related pancreatitis seen at [facility] on 10/24/24 with abdominal pain, nausea and vomiting for 1 day (symptoms similar to past episode of pancreatitis). Patient admits to drinking 4 tall beers a day and feels shaky if he doesn't. No prior withdrawal seizures. Patient is tremulous, anxious Labs showed WBC: 12.5 and lipase 923 and increased to 1398 today BMP: Elevated LFTs. Pancreatitis is likely related to ETOH abuse - need to rule out biliary pancreatitis and hypertriglyceridemia. 10/24/[address] SCAN SHOWED: Acute interstitial pancreatitis without splenic vein thrombosis or pseudoaneurysm, splenic artery. Hepatomegaly and steatosis. Likely reactive inflammatory processes in the left hemicolon RECOMMENDATIONS: 1. Agree with bowel rest with IV Fluids, IV antiemetics and pain medications. 2. Check triglycerides and repeat lipase and LFTs with a.m. labs 3. Abd US in the am to rule out non radiopaque gallstones (GB appeared to be contracted on CT scan) Procedures Date of Service Date of Service: 10/25/24
--- NOTE | 2024-10-25 12:05 | MHC.RECOVRN ---
TW met with the patient with interpretive services and visitor at bedside to discuss current alcohol use and concerns related to increased risk of alcohol related problems. Pt was agreeable to meeting with TW while the visitor was present.? On approach pt was sitting in bed, eyes closed, and mildly diaphoretic. Pt reports ?feeling like garbage? and reports abdominal pain and dry mouth. He denies symptoms of withdrawal.? Patient reports consuming 4 tall cans of beer daily and recently taking ?a small piece, like a tiny corner of Suboxone? he reports purchasing from the street in order to manage abdominal pain.? Pt reports he stopped being prescribed buprenorphine at his request? ?2-3? years ago and is able to manage opioid cravings with the use of alcohol. Review of [employer] confirms this statement. Pt denies desire to change his alcohol consumption but was agreeable to have information left at bedside. TW will obtain written education and resources in [place]ian to provide pt. Tw verbally educated on pancreatitis, its progression ith increased alcohol use, as well as the risk of precipitated withdrawal when utilizing opioid pain medication in addition to buprenorphine. Pt then shrugged his shoulders and closed his eyes.? Intention was to discuss how alcohol use has impacted health, including negative impact on mental health and overall physical well being as well as? risk and reduction strategies including drinking below the recommended limit however, due to patient request, information will be left at bedside. Pt declines intervention, DOM, or outpt appt related to AUD at this time.? Pt was provided with TW?s contact information if questions or concerns arise.? Pt denies further questions or concerns at this time.? TW to return with materials translated into Malian and is available for further questions or concerns
[2024-10-26] VITALS (8 sets, daily range): BP systolic 127–148; BP diastolic 60–89; PULSE 73–88; RESP 16–20; TEMP 36.2–37.1; O2SAT 91–95
[2024-10-26 06:34] LABS: Hematocrit 40.2 % (42.0-52.0); Hemoglobin 13.7 g/dl (14.0-18.0); Mean Corpuscular HGB Conc 34.1 g/dl (31.0-36.0); Mean Corpuscular Hemoglobin 30.2 pg (27.0-33.0); Mean Corpuscular Volume 88.7 fL (80.0-98.0); NRBC Abs Auto 0.000 X10*3/uL (0.0-0.012); NRBC Pct Auto 0.0 /100WBC (0.0-0.2); Platelet Count 195 X10*3/uL (160-400); Red Blood Count 4.53 X10*6/uL (4.60-5.80); White Blood Count 16.3 X10*3/uL (4.8-10.8)
[2024-10-26 07:19] LABS: Lipase 335 U/L (8-78); Triglycerides 47 mg/dL (<150)
--- NOTE | 2024-10-26 07:52 | HO.PM.IMPN ---
Subjective Subjective Date of Service: 10/26/24 Interval History: acute pancreatitis Review of Systems abd pain somewhat improving no nausea or vomiting or fever. Review of Systems: Yes all other systems are reviewed and are negative Physical Exam Exam: Exam: Appearance: Alert.? Oriented X3.? cvs: rrr, [id number] . res: clear to auscultation ,no rhonchii or wheezing abd: no rebound or guarding ,abd pain-left flank/rad to back , bs present. ext pulses present , no cyanosis . neuro: axo3 , nonfocal. Vital Signs: Vital Signs: Last Vital Signs Temp 98.0 F 10/26/24 03:43 Pulse 81 10/26/24 03:43 Resp 16 10/26/24 03:43 BP 134/81 10/26/24 06:23 Pulse Ox 91 L 10/26/24 03:43 O2 Del Method Room Air 10/26/24 03:43 BMI result Body Mass Index 31.0 Objective Data Active Medications Acetaminophen (Acetaminophen 325 Mg Tablet) 650 mg PO Q6H PRN PRN Reason: Pain, Mild 1-3,fever,headache Amlodipine Besylate (Amlodipine Besylate 2.5 Mg Tablet) 7.5 mg PO BEDTIME [facility]; Protocol Last Admin: 10/25/24 22:02 Dose: 7.5 mg Documented By: WALDEMAR Bisacodyl (Bisacodyl 10 Mg Supp.Rect) 10 mg [place] BEDTIME [facility] Last Admin: 10/25/24 22:14 Dose: Not Given Documented By: WALDEMAR Non-Admin Reason: Patient Refused Calcium Carbonate (Calcium Carbonate 750 Mg Tab.Chew) 750 mg PO Q4H PRN PRN Reason: Heartburn Clonidine HCl (Clonidine Hcl 0.2 Mg Tablet) 0.2 mg PO Q8H [facility]; Protocol Last Admin: 10/26/24 06:25 Dose: 0.2 mg Documented By: WALDEMAR Enoxaparin Sodium (Enoxaparin Sodium 40 Mg/0.4 Ml Syringe) 40 mg SUBCUT Q24H [facility] Last Admin: 10/25/24 17:29 Dose: 40 mg Documented By: IHLDA Hydromorphone HCl (Hydromorphone Hcl 1 Mg/Ml Syringe) 1 mg IVPUSH Q4H [facility]; Protocol Last Admin: 10/26/24 05:13 Dose: 1 mg Documented By: WALDEMAR Lactated Ringer's (Lr) 1,000 mls @ 100 mls/hr IVCONT .Q10H [facility] Last Admin: 10/25/24 22:12 Dose: 100 mls/hr Documented By: WALDEMAR Thiamine HCl 100 mg/ Sodium (Chloride) 101 mls @ 202 mls/hr IV DAILY [facility] Last Infusion: 10/25/24 09:25 Dose: Infused Documented By: HILDA Folic Acid 1 mg/ Sodium (Chloride) 50.2 mls @ 100.4 mls/hr IV DAILY [facility] Last Infusion: 10/25/24 11:11 Dose: Infused Documented By: HILDA Magnesium Hydroxide (Milk Of Magnesia 30 Ml Oral.Susp) 30 ml PO DAILY PRN PRN Reason: Constipation Melatonin (Melatonin 3 Mg Tablet) 6 mg PO BEDTIME PRN PRN Reason: Insomnia Ondansetron HCl (Ondansetron Hcl 4 Mg/2 Ml Vial) 4 mg IVPUSH Q4H PRN PRN Reason: Nausea and Vomiting Pantoprazole Sodium (Pantoprazole Sodium 40 Mg/10 Ml Vial) 40 mg IVPUSH BID [facility] Last Admin: 10/25/24 22:03 Dose: 40 mg Documented By: WALDEMAR Pharmacy Consult (Consult Rx Etoh Phenob Im/Po) 1 each MISCELLANE ONCE [facility]; Protocol PRN Reason: Consult order Phenobarbital (Phenobarbital 15 Mg Tablet) 45 mg PO BID [facility] Stop: 10/26/24 21:01 Last Admin: 10/25/24 22:02 Dose: 45 mg Documented By: WALDEMAR Phenobarbital (Phenobarbital 15 Mg Tablet) 15 mg PO BID [facility] Stop: 10/28/24 21:01 Phenobarbital (Phenobarbital 15 Mg Tablet) 15 mg PO DAILY [facility] Stop: 10/30/24 09:01 Sodium Chloride (0.9 % Sodium Chloride Flush 3 Ml Syringe) 3 ml IVFLUSH QSHIFT [facility] Last Admin: 10/26/24 01:18 Dose: Not Given Documented By: WALDEMAR Non-Admin Reason: IV Running Labs 10/26/24 06:00 10/25/24 06:45 Labs: Laboratory Results - last 24 hr 10/26/24 06:00 MCV 88.7 MCH 30.2 MCHC 34.1 RDW 12.5 Plt Count 195 MPV 10.1 Absolute Nucleated RBC 0.000 Nucleated RBC % (auto) 0.0 Triglycerides 47 Lipase 335 H Assessment and Plan (1) Pancreatitis: Status: Acute Plan 58 y/o M with pmhx etoh use -patient has prior history of pancreatitis also due to alcohol use-he drinks about 4 tall beers a day and feels shaky if he doesn't. No prior withdrawal seizures. He started with abdominal pain this AM n/v and feels just like prior pancreatitis. abd pain: Left flank side, radiating to back, unable to eat or drink due to pain. Feel nauseated. Acute pancreatitis-likely secondary to alcohol use. Elevated LFT, lipase, CT abdomen shows pancreatitis plan: Abdominal pain similar, lipase improving ,abd us Bowel rest, IV fluids, IV pain medication,ppi, IV antiemetics, added bowel regimen. GI evaluation noted. Constipation: luxatives prn Alcohol withdrawal: CIWA scale is 1, thiamine, folic acid, phenobarb protocol. Addiction evaluation elevated bp:d/t alcohol withdrawals- on clonidine dvt prophylax: s/c lovenox ongoing need to stays considering alcohol withdrawals ,acute pancreatitis-need bowel rest,iv fluids ,pain meds and antiemetics, as well as closely monitor renal function electrolytes. Quality Stroke Does the patient have a stroke diagnosis?: No VTE Prior VTE?: No VTE Risk Level:: Medical - moderate - high VTE Device Contraindication: N/A - Device Ordered VTE Drug Contraindication: N/A - Med Ordered
[2024-10-26] MEDS: 0.9 % Sodium Chloride Flush 3 ML SYRINGE IVFLUSH (07:59)
[2024-10-26] MEDS: Lactated Ringers 1,000 ML 100 ML IVCONT (08:13)
[2024-10-26] MEDS: Thiamine HCL 100 MG in 0.9 % Sodium Chloride 100 ML 202 MG IV (09:49)
--- NOTE | 2024-10-26 11:26 | PHA.MEDREC ---
Addendum entered by Jono Sauer, [facility] 10/27/24 15:55: Nurse Jacque Rivera said family sent in the pic of the med bottle at home and it's chlorthalidone 25 mg. Med rec updated and Dr. Garcia was notified. Original Note: Pharmacy Consult ? Medication Reconciliation Pharmacy has completed the medication reconciliation. Spoke to patient using an adaptive physical educator on 10/24/24 and he said he takes an old rx of blood pressure as needed for high blood pressure but doesn't know the name of medication. Friend said she will take a picture of the bottle and send it to him for us. Since then we still can't get a hold of the name of the med (left voicemail with friend twice on 10/25/24 with no call back). Dr. Garcia is aware of situation, ok with leaving med rec as no med and pharmacy will update when we can get the name of the med.
--- NOTE | 2024-10-26 11:37 | MHC.CM.PN ---
CM met with Patient at bedside and with the assist of a telephonic Valet Cashier (In-person Computer Methods Analyst delayed). Patient lives in an apartment with his , who will transport at the time of dc. Patient states that he is in pain so questions/answers are limited. Patient is unaware of who his PCP is. Patient may benefit from a Recovery Team Consult r/t ETOH.
[2024-10-27] VITALS (14 sets, daily range): BP systolic 135–175; BP diastolic 84–102; PULSE 71–84; RESP 12–20; TEMP 36.6–38.1; O2SAT 91–96
[2024-10-27] MEDS: 0.9 % Sodium Chloride Flush 3 ML SYRINGE IVFLUSH ×2 (08:37→20:59)
[2024-10-27 09:38] LABS: Alanine Aminotransferase 43 U/L (0-40); Albumin Level 3.6 g/dL (3.5-5.0); Alkaline Phosphatase 63 U/L (39-117); Anion Gap 11 (12-20); Aspartate Amino Transferase 44 U/L (5-37); Blood Urea Nitrogen 9 mg/dL (9-16); Calcium 8.8 mg/dL (8.4-10.2); Carbon Dioxide 23 mmol/L (22-29); Chloride 99 mmol/L (96-108); Creatinine Clr Calc Pharmacy 131.2; Estimated Glomerular Filt Rate > 60; Lipase 104 U/L (8-78); Potassium 3.5 mmol/L (3.3-5.1); Sodium 129 mmol/L (135-145); Total Protein 6.5 g/dL (6.5-8.0)
[2024-10-27] MEDS: Thiamine HCL 100 MG in 0.9 % Sodium Chloride 100 ML 202 MG IV (11:05)
[2024-10-27] MEDS: Lactated Ringers 1,000 ML 125 ML IVCONT ×2 (11:07→18:20)
--- NOTE | 2024-10-27 13:39 | HO.PM.IMPN ---
Subjective Subjective Date of Service: 10/27/24 Interval History: Acute pancreatitis Review of Systems Abdominal pain by very little improvement Feel nauseated Encouraged him to try liquid diet Review of Systems: Yes all other systems are reviewed and are negative Physical Exam Exam: Exam: Appearance: Alert.? Oriented X3.? cvs: rrr, [id number] . res: clear to auscultation ,no rhonchii or wheezing abd: no rebound or guarding ,abd pain-left flank/rad to back , bs present. ext pulses present , no cyanosis . neuro: axo3 , nonfocal. Vital Signs: Vital Signs: Last Vital Signs Temp 97.9 F 10/27/24 12:00 Pulse 77 10/27/24 12:00 Resp 12 10/27/24 12:00 BP 146/90 H 10/27/24 12:00 Pulse Ox 95 10/27/24 12:00 O2 Del Method Room Air 10/27/24 12:00 BMI result Body Mass Index 31.0 Objective Data Active Medications Acetaminophen (Acetaminophen 325 Mg Tablet) 650 mg PO Q6H PRN PRN Reason: Pain, Mild 1-3,fever,headache Amlodipine Besylate (Amlodipine Besylate 2.5 Mg Tablet) 7.5 mg PO BEDTIME GREG; Protocol Last Admin: 10/26/24 21:07 Dose: 7.5 mg Documented By: WALDEMAR Bisacodyl (Bisacodyl 10 Mg Supp.Rect) 10 mg SD BEDTIME GREG Last Admin: 10/26/24 21:08 Dose: Not Given Documented By: WALDEMAR Non-Admin Reason: Patient Refused Calcium Carbonate (Calcium Carbonate 750 Mg Tab.Chew) 750 mg PO Q4H PRN PRN Reason: Heartburn Clonidine HCl (Clonidine Hcl 0.2 Mg Tablet) 0.2 mg PO Q8H GREG; Protocol Last Admin: 10/27/24 06:33 Dose: 0.2 mg Documented By: WALDEMAR Enoxaparin Sodium (Enoxaparin Sodium 40 Mg/0.4 Ml Syringe) 40 mg SUBCUT Q24H GREG Last Admin: 10/26/24 17:17 Dose: Not Given Documented By: MICHEAL Non-Admin Reason: Patient Refused Hydromorphone HCl (Hydromorphone Hcl 1 Mg/Ml Syringe) 1 mg IVPUSH Q4H GREG; Protocol Last Admin: 10/27/24 11:04 Dose: 1 mg Documented By: MICHEAL Thiamine HCl 100 mg/ Sodium (Chloride) 101 mls @ 202 mls/hr IV DAILY GREG Last Infusion: 10/27/24 11:39 Dose: Infused Documented By: PANDADIAN Folic Acid 1 mg/ Sodium (Chloride) 50.2 mls @ 100.4 mls/hr IV DAILY [facility] Last Infusion: 10/27/24 09:18 Dose: Infused Documented By: MICHEAL Lactated Ringer's (Lr) 1,000 mls @ 125 mls/hr IVCONT .Q8H [facility] Last Admin: 10/27/24 11:07 Dose: 125 mls/hr Documented By: MICHEAL Magnesium Hydroxide (Milk Of Magnesia 30 Ml Oral.Susp) 30 ml PO DAILY PRN PRN Reason: Constipation Melatonin (Melatonin 3 Mg Tablet) 6 mg PO BEDTIME PRN PRN Reason: Insomnia Ondansetron HCl (Ondansetron Hcl 4 Mg/2 Ml Vial) 4 mg IVPUSH Q4H PRN PRN Reason: Nausea and Vomiting Pantoprazole Sodium (Pantoprazole Sodium 40 Mg/10 Ml Vial) 40 mg IVPUSH BID [facility] Last Admin: 10/27/24 08:46 Dose: 40 mg Documented By: MICHEAL Pharmacy Consult (Consult Rx Etoh Phenob Im/Po) 1 each MISCELLANE ONCE PRN; Protocol PRN Reason: Consult order Phenobarbital (Phenobarbital 15 Mg Tablet) 15 mg PO BID [facility] Stop: 10/28/24 21:01 Last Admin: 10/27/24 08:46 Dose: 15 mg Documented By: MICHEAL Phenobarbital (Phenobarbital 15 Mg Tablet) 15 mg PO DAILY [facility] Stop: 10/30/24 09:01 Sodium Chloride (0.9 % Sodium Chloride Flush 3 Ml Syringe) 3 ml IVFLUSH QSHIFT [facility] Last Admin: 10/27/24 08:37 Dose: 3 ml Documented By: MICHEAL Labs 10/26/24 06:00 10/27/24 08:53 Labs: Laboratory Results - last 24 hr 10/27/24 10/27/24 08:53 09:06 Hold Purple Top SEE NOTE Anion Gap 11 L Estim Creat Clear Calc 131.2 Estimated GFR > 60 Random Glucose 89 Calcium 8.8 Total Bilirubin 1.2 H AST 44 H ALT 43 H Alkaline Phosphatase 63 Total Protein 6.5 Albumin 3.6 Lipase 104 H Assessment and Plan (1) Pancreatitis: Status: Acute Plan 58 y/o M with pmhx etoh use -patient has prior history of pancreatitis also due to alcohol use-he drinks about 4 tall beers a day and feels shaky if he doesn't. No prior withdrawal seizures. He started with abdominal pain this AM n/v and feels just like prior pancreatitis. abd pain: Left flank side, radiating to back, unable to eat or drink due to pain. Feel nauseated. Acute pancreatitis-likely secondary to alcohol use. Elevated LFT, lipase, CT abdomen shows pancreatitis abd us:Small ascites. No cholelithiasis or evidence of acute cholecystitis.Hepatomegaly with hepatic steatosis. plan: Abdominal pain similar, lipase improving ,abd us Bowel rest, IV fluids, IV pain medication,ppi, IV antiemetics, added bowel regimen. GI evaluation noted. Constipation: luxatives prn hyponatremia : Likely due to decreased p.o. intake and IV fluids added serum, urine osmolality and lytes Encouraged for p.o. intake-at least clear liquid. We will repeat BMP in the evening. Alcohol withdrawal: CIWA scale 0, thiamine, folic acid, phenobarb protocol. Addiction evaluation-info given. elevated bp:d/t alcohol withdrawals- on clonidine dvt prophylax: s/c lovenox ongoing need to stays considering acute pancreatitis,hyponatremia -need bowel rest,iv fluids ,pain meds and antiemetics, as well as closely monitor renal function electrolytes. Quality Stroke Does the patient have a stroke diagnosis?: No VTE Prior VTE?: No VTE Risk Level:: Medical - moderate - high VTE Device Contraindication: N/A - Device Ordered VTE Drug Contraindication: N/A - Med Ordered
[2024-10-27 15:22] LABS: Osmolality, Serum 271 mosm/kg (281-305)
[2024-10-27 18:39] LABS: Anion Gap 10 (12-20); Blood Urea Nitrogen 9 mg/dL (9-16); Calcium 8.7 mg/dL (8.4-10.2); Carbon Dioxide 24 mmol/L (22-29); Chloride 99 mmol/L (96-108); Creatinine Clr Calc Pharmacy 136.9; Estimated Glomerular Filt Rate > 60; Potassium 3.4 mmol/L (3.3-5.1); Sodium 130 mmol/L (135-145)
[2024-10-28] VITALS: BP 151/94; PULSE 72; RESP 20; TEMP 37.3; O2SAT 96
[2024-10-28] MEDS: Lactated Ringers 1,000 ML 125 ML IVCONT ×2 (02:09→08:53)
[2024-10-28 04:00] VITALS: BP 168/99; PULSE 78; RESP 20; TEMP 37.6; O2SAT 96
[2024-10-28] MEDS: Thiamine HCL 100 MG in 0.9 % Sodium Chloride 100 ML 202 MG IV (07:39)
[2024-10-28 07:49] VITALS: BP 149/93; PULSE 76; RESP 20; TEMP 37.1; O2SAT 97
[2024-10-28] MEDS: Milk of Magnesia 30 ML ORAL.SUSP PO (07:53)
[2024-10-28] MEDS: 0.9 % Sodium Chloride Flush 3 ML SYRINGE IVFLUSH ×2 (07:59→17:19)
[2024-10-28 10:05] LABS: Hematocrit 40.1 % (42.0-52.0); Hemoglobin 14.2 g/dl (14.0-18.0); Mean Corpuscular HGB Conc 35.4 g/dl (31.0-36.0); Mean Corpuscular Hemoglobin 30.2 pg (27.0-33.0); Mean Corpuscular Volume 85.3 fL (80.0-98.0); NRBC Abs Auto 0.000 X10*3/uL (0.0-0.012); NRBC Pct Auto 0.0 /100WBC (0.0-0.2); Platelet Count 319 X10*3/uL (160-400); Red Blood Count 4.70 X10*6/uL (4.60-5.80); White Blood Count 13.9 X10*3/uL (4.8-10.8)
[2024-10-28 10:21] LABS: Anion Gap 12 (12-20); Blood Urea Nitrogen 8 mg/dL (9-16); Calcium 9.4 mg/dL (8.4-10.2); Carbon Dioxide 26 mmol/L (22-29); Chloride 97 mmol/L (96-108); Creatinine Clr Calc Pharmacy 126.0; Estimated Glomerular Filt Rate > 60; Lipase 105 U/L (8-78); Potassium 3.3 mmol/L (3.3-5.1); Sodium 132 mmol/L (135-145)
[2024-10-28 11:50] VITALS: BP 143/88; PULSE 67; RESP 18; TEMP 37.1; O2SAT 96
--- NOTE | 2024-10-28 14:37 | MHC.RECOVRN ---
Met with pt in f/u to provide and discuss resources r/t AUD. Discussed DOM and outpatient supports. Pt declined outpatient LONI appointment at the [facility] [place] for treatment of his AUD. Pt also declined DOM initiation at this time. No other questions or concerns offered. [facility] Mongolian speaking interpret utilized.
[2024-10-28 16:00] VITALS: BP 146/88; PULSE 80; RESP 18; TEMP 36.3; O2SAT 97
--- NOTE | 2024-10-28 16:25 | MHC.CM.PN ---
EMR reviewed and per MD rounds, pt is not medically cleared for discharge due to management of ETOH withdrawal.
--- NOTE | 2024-10-28 17:04 | PM.DS ---
DS: Providers Provider Date of Service: 10/28/24 Date of admission: 10/24/24 16:54 Date of discharge: 10/28/24 Primary care physician: Unknown Physician Consults: 10/24/24 17:29 Addiction Medicine Provider Routine Consulting Provider: Addiction Covering Reason for consultation: alcohol use 10/25/24 08:51 Consult to Gastroenterology Routine Consulting Provider: [facility] Gastro[facility]ology Services Reason for consultation: Acute pancreatitis Has provider been notified: No Attending physician on discharge: Maribell Garcia Discharging clinician: Maribell Garcia DS: Diagnosis Discharge Diagnosis (1) Pancreatitis: Status: Acute DS: Summary Hospital Course Hospital Course: hpi: 66-year-old female Barbadian-speaking only with past medical history hypertension, COPD/asthma, allergic rhinitis, knee replacement presents to the emergency department for noted low heart rate earlier today while checking her blood pressure via her electronic machine. Patient was also diagnosed with the flu this past Monday and was still symptomatic with a productive cough of yellow sputum and a scratchy throat. Patient has been started on Tamiflu and that is continued since Monday. Patient denies any fever, chills, nausea or vomiting. Patient is not having any chest pain or shortness of breath at rest. Workup in the ED included electrolytes and potassium noted to be 2.8. Patient's potassium has been repleted with 10 mEq KCL x4 and oral potassium. Patient's TSH was normal. EKG notes a rate of 46 with a normal SD and no evidence of heart block. QTC also normal. Magnesium 2.0. No murmur on exam. Cardiology was consulted by the ED provider and Cardiology felt it was appropriate to admit patient to this hospital. There was some concern for possible myocarditis secondary to influenza. Patient currently stable with ongoing normal hemodynamics other than heart rate. Patient has not required inotrope support in the ED. echo is pending. Patient did again test positive for influenza a today. Hospital course: Patient was admitted for alcohol withdrawal and pancreatitis: Started on IV fluid, pain medication and PPIs, CT abdomen done: Possible acute pancreatitis, hepatomegaly with steatosis. Leukocytosis reactive to pancreatitis improving. Patient is asymptomatic currently , no other symptoms. Patient lipase is and LFTs improving with hydration and supportive care. CT abdomen shows hepatic steatosis, also alcohol use might be contributing to elevated LFTs which is improving now, monitor LFT outpatient with PCP. Patient is tolerating diet. Abdominal pain improved significantly. Mild hyponatremia: Secondary to decreased p.o. intake, improving with p.o. intake and IV hydration. Monitor BMP outpatient. Patient was strongly advised to abstain from alcohol. Also added p.o. omeprazole for possible mild alcoholic gastritis. In addition added medications for constipation Limited supply of pain medication as above. Hypertension: Hold chlorthalidone since has pancreatitis, added amlodipine for blood pressure control. Monitor blood pressure out patiently with PCP and further management as per PCP. Patient was advised to follow up with PCP and consider outpatient GI outpatient plan: Amlodipine 10 mg q.day, chlorthalidone is on hold in the setting of pancreatitis. Also advised the patient to use low fat diet. Omeprazole, laxatives, thiamine as prescribed. Monitor BMP, LFTs outpatient, and further workup for hepatic steatosis outpatient Strongly advised to abstain from alcohol. Above management discussed with the patient and his in detail length he understand and in agreement with the above plan, time spent 50 minutes-they both understand and in agreement with the above plan. All questions answered. Information given to the patient with the help of driver service technician. Time Attestation Total time managing care of this patient today: 50 mintues. Discharge Coordination Time (in mins): 50 min Quality: Safe Use of Opioids Does Pt have an Active Cancer Diagnosis on the Problem List?: No Quality: Stroke Does the patient have a stroke diagnosis?: No Physical Exam Exam: Exam: Appearance: Alert.? Oriented X3.? cvs: rrr, [id number] . res: clear to auscultation ,no rhonchii or wheezing abd: no rebound or guarding ,abd pain-left flank/rad to back , bs present. ext pulses present , no cyanosis . neuro: axo3 , nonfocal. Vital Signs: Vital Signs: Last Vital Signs Temp 97.3 F 10/28/24 16:00 Pulse 80 10/28/24 16:00 Resp 18 10/28/24 16:00 BP 146/88 H 10/28/24 16:00 Pulse Ox 97 10/28/24 16:00 O2 Del Method Room Air 10/28/24 16:00 BMI result Body Mass Index 31.0 DS: Data Data Completed and Pending Labs on day of discharge: Laboratory Results - last 24 hr 09/21/25 09/22/25 18:18 09:25 WBC 13.9 H RBC 4.70 Hgb 14.2 Hct 40.1 L MCV 85.3 MCH 30.2 MCHC 35.4 RDW 11.9 Plt Count 319 D MPV 9.8 Absolute Nucleated RBC 0.000 Nucleated RBC % (auto) 0.0 Sodium 130 L 132 L Potassium 3.4 3.3 Chloride 99 97 Carbon Dioxide 24 26 Anion Gap 10 L 12 BUN 9 8 L Creatinine 0.69 0.75 Estim Creat Clear Calc 136.9 126.0 Estimated GFR > 60 > 60 Random Glucose 104 93 Calcium 8.7 9.4 D Lipase 105 H Imaging Chest x-ray: Radiologist's impression: ITS Impressions Abdomen/Pelvis CT 10/24/24 15:18 IMPRESSION: Acute interstitial pancreatitis without splenic vein thrombosis or pseudoaneurysm, splenic artery. Hepatomegaly and steatosis. Likely reactive inflammatory processes in the left hemicolon. Fleischner guidelines were followed. KUB X-Ray 10/25/24 09:00 IMPRESSION: 1. Mild constipation. No evidence of bowel obstruction. Mild gaseous distention of the sigmoid colon which is mildly redundant. Discharge Plan Discharge Anticipated Discharge Date/Time: 10/28/24 16:51 Patient Disposition: Home, Self-Care Discharge Diagnosis: abd pain /pencreatitis Referrals: Physician,Unknown J [Primary Care Provider, Medical] - 1 Week Discharge Medications: New bisacodyl [Gentle Laxative (bisacodyl)] 10 mg Suppository 10 mg SD BEDTIME PRN (Reason: constipation) Qty: 30 0RF amlodipine [Norvasc] 10 mg tablet 10 mg PO DAILY Qty: 90 0RF thiamine HCl (vitamin B1) 100 mg capsule 100 mg PO DAILY Qty: 90 0RF docusate sodium [Colace] 100 mg capsule 100 mg PO DAILY PRN (Reason: constipation) Qty: 30 0RF polyethylene glycol 3350 [Miralax] 17 gram/dose powder 17 g PO DAILY PRN (Reason: constipation) Qty: 119 0RF omeprazole 20 mg capsule,delayed release(DR/EC) 20 mg PO DAILY Qty: 90 0RF tramadol 25 mg tablet 25 mg PO Q6H PRN (Reason: pain) Qty: 10 0RF Discontinued chlorthalidone 25 mg Tablet 25 mg PO DAILY PRN (Reason: Blood Pressure) Discharge Orders: Discharge Order (Routine); Ordered 10/28/24 Ordered By: Maribell Garcia Diet: Advance to usual diet Activity on Discharge: As tolerated Stand Alone Forms: Patient Portal Discharge page Print Language: Barbadian Care Plan Goals: Patient was admitted for alcohol withdrawal and pancreatitis: Started on IV fluid, pain medication and PPIs, CT abdomen done: Possible acute pancreatitis, hepatomegaly with steatosis. Leukocytosis reactive to pancreatitis improving. Patient is asymptomatic currently , no other symptoms. Patient lipase is and LFTs improving with hydration and supportive care. CT abdomen shows hepatic steatosis, also alcohol use might be contributing to elevated LFTs which is improving now, monitor LFT outpatient with PCP. Patient is tolerating diet. Abdominal pain improved significantly. Patient was strongly advised to abstain from alcohol. Also added p.o. omeprazole for possible mild alcoholic gastritis. In addition added medications for constipation Limited supply of pain medication as above. Hypotension: Hold chlorthalidone since has pancreatitis, added amlodipine for blood pressure control. Monitor blood pressure out patiently with PCP and further management as per PCP. Patient was advised to follow up with PCP and consider outpatient GI outpatient Health Concerns: as Above. Plan of Treatment: As above. Assessment: As above. Discharge Date/Time: 10/28/24 18:18
== END 2024-10-28 18:18 | disposition home or self-care (01) | DRG 282 ==
LOC: HO.ED 15:59 → HO.EDOVER 17:05 → HO.IMC 19:18
PROVIDERS: Internal Medicine Cardiovascular Disease; Internal Medicine Gastroenterology; Admitting Provider Internal Medicine; Emergency Provider Emergency Medicine; Visit Provider Internal Medicine
DX: K85.20 Alcohol induced acute pancreatitis without necrosis or infection (principal); E87.1 Hypo-osmolality and hyponatremia; F10.139 Alcohol abuse with withdrawal, unspecified; F17.210 Nicotine dependence, cigarettes, uncomplicated; K59.00 Constipation, unspecified; Z71.41 Alcohol abuse counseling and surveillance of alcoholic; Z71.6 Tobacco abuse counseling; Z79.899 Other long term (current) drug therapy
CPT/HCPCS: 36415; 74018; 74177; 76705; 80048; 80053; 80076; 80307; 82436; 83615; 83690; 83735; 83930; 83935; 84133; 84300; 84478; 84484; 85025; 85027; 93005; 99285; J1171; J1650; J1808; J2405; J2470; J2560; J3411; J7120; Q9967; S9485

== ENCOUNTER → 2024-10-24 12:56 | Outpatient (BNV) | payer OTHER, SELFPAY | PROVIDERS: Admitting Provider Internal Medicine; Emergency Provider Emergency Medicine; Visit Provider Internal Medicine | DX: R07.9 Chest pain, unspecified (principal) | CPT/HCPCS: 93010 ==

== ENCOUNTER → 2024-10-24 13:06 | Outpatient (BNV) | payer OTHER, SELFPAY | PROVIDERS: Emergency Provider Emergency Medicine; Visit Provider Radiology Diagnostic Radiology | DX: K85.90 Acute pancreatitis without necrosis or infection, unspecified (principal) | CPT/HCPCS: 74177 ==

== ENCOUNTER 2024-10-24 16:54 | Outpatient (BNV) | payer OTHER, SELFPAY | END 2024-10-25 09:00 | PROVIDERS: Admitting Provider Internal Medicine; Emergency Provider Emergency Medicine; Visit Provider Radiology Diagnostic Radiology | DX: K59.00 Constipation, unspecified (principal) | CPT/HCPCS: 74018 ==

== ENCOUNTER 2024-10-24 16:54 | Outpatient (BNV) | payer OTHER, SELFPAY | END 2024-10-26 13:29 | PROVIDERS: Admitting Provider Internal Medicine; Emergency Provider Emergency Medicine; Visit Provider Radiology Diagnostic Radiology | DX: K76.0 Fatty (change of) liver, not elsewhere classified (principal); R18.8 Other ascites; R16.0 Hepatomegaly, not elsewhere classified | CPT/HCPCS: 76705 ==

== ENCOUNTER → 2024-10-24 16:54 | Outpatient (BNV) | payer OTHER, SELFPAY | PROVIDERS: Admitting Provider Internal Medicine; Emergency Provider Emergency Medicine; Visit Provider Internal Medicine | DX: K85.20 Alcohol induced acute pancreatitis without necrosis or infection (principal) | CPT/HCPCS: 99222; 99232; 99239 ==

== ENCOUNTER → 2024-10-24 16:54 | Outpatient (BNV) | payer OTHER, SELFPAY | PROVIDERS: Admitting Provider Internal Medicine; Emergency Provider Emergency Medicine; Visit Provider Internal Medicine Gastroenterology | DX: R10.13 Epigastric pain (principal); K85.20 Alcohol induced acute pancreatitis without necrosis or infection | CPT/HCPCS: 99222 ==